=== PATIENT | male | born 1950 | race Caucasian/White ===

== ENCOUNTER 2016-10-27 02:00 | Observation (INO) | payer MEDICARE, OTHER ==
[2016-10-27] MEDS ORDERED: ASPIRIN 81 MG TABLET, CHEWABLE PO ONE (02:27)
[2016-10-27 02:45] LABS: ABSOLUTE EOSINOPHILS # (AUTO) 0.4 10^3/uL (0.0-0.6); ABSOLUTE LYMPHOCYTES (AUTO) 3.3 10^3/uL (0.5-4.7); ABSOLUTE MONOCYTES (AUTO) 0.6 10^3/uL (0.1-1.4); ABSOLUTE NEUT (AUTO) 3.1 10^3/uL (1.7-8.2); BASOPHILS % (AUTO) 0.6 % (0-2); EOSINOPHILS % (AUTO) 5.4 % (0-6); HEMATOCRIT 31.4 % (37.9-51.0); HEMOGLOBIN 9.8 g/dL (13.5-17.0); LYMPHOCYTES % (AUTO) 44.3 % (13-45); MEAN CORPUSCULAR HEMOGLOBIN 20.6 pg (27.0-33.4); MEAN CORPUSCULAR HGB CONC 31.1 g/dL (32.0-36.0); MEAN CORPUSCULAR VOLUME 66 fl (80-97); MONOCYTES % (AUTO) 8.5 % (3-13); RED BLOOD COUNT 4.74 10^6/uL (4.35-5.55); RED CELL DISTRIBUTION WIDTH 15.5 % (11.5-14.0); SEGMENTED NEUTROPHILS % (AUTO) 41.2 % (42-78); WHITE BLOOD COUNT 7.6 10^3/uL (4.0-10.5)
[2016-10-27 02:51] LABS: PROTHROMBIN TIME 12.1 SEC (11.4-15.4)
--- NOTE | 2016-10-27 02:56 | ER Document Report ---
ED General - General Time seen by provider: 02:40 Mode of Arrival: Ambulatory Information source: Patient TRAVEL OUTSIDE OF THE [place] IN LAST 30 DAYS: No - HPI Onset: This afternoon Onset/Duration: Gradual Associated symptoms: Chest pain, Headache <PHYLICIA CHAVIS - Last Filed: 10/27/16 03:42> <MICHELADHRUV ANN - Last Filed: 10/27/16 05:44> - General Chief Complaint: Chest Pain Stated Complaint: CHEST PAIN Notes: Patient is a 66-year-old male presents to the emergency department with complaints of chest pain and headache. Patient also complains that he is tired. Patient states that his pain was onset this afternoon at 15:00. Patient has taken 8-9 nitroglycerin, at least a baby aspirin, has to that in all patches on his chest; patient also took a Percocet which he is currently being prescribed and he also took some sleeping medications. Patient states that he woke up with some chest pain that felt different than previous episodes. Patient describes his pain as pressure and discomfort and states that his pain radiates down his left arm. Patient's emergency care attendant is Dr. Lopes at [facility]. Patient states that he currently is still having some chest discomfort that he is quite drowsy due to sleeping medications. Patient has a history of a previous heart attack x1, hypertension, and hypercholesterolemia. (PHYLICIA CHAVIS) - Related Data Allergies/Adverse Reactions: ciprofloxacin [From Cipro] Allergy (Verified 12/29/15 16:31) ciprofloxacin HCl [From Cipro] Allergy (Verified 12/29/15 16:31) isosorbide mononitrate [From Imdur] Allergy (Verified 12/29/15 16:31) lisinopril [From Zestril] Allergy (Verified 12/29/15 16:31) Past Medical History - General Information source: Patient - Social History Smoking Status: Current Every Day Smoker Frequency of alcohol use: Occasional Drug Abuse: None Family History: None - Past Medical History Cardiac Medical History: Reports: Hx Heart Attack - x1, Hx Hypercholesterolemia , Hx Hypertension GI Medical History: Reports: Hx Gastroesophageal Reflux Disease Psychiatric Medical History: Reports: Hx Anxiety, Hx Depression Past Surgical History: Reports: Hx Cardiac Surgery - double bypass, Hx Cholecystectomy, Hx Coronary Artery Bypass Graft, Hx Open Heart Surgery - Immunizations Hx Diphtheria, Pertussis, Tetanus Vaccination: Yes <PHYLICIA CHAVIS - Last Filed: 10/27/16 03:42> Review of Systems - Review of Systems Constitutional: No symptoms reported EENT: No symptoms reported Cardiovascular: See HPI, Chest pain Respiratory: No symptoms reported Gastrointestinal: No symptoms reported Genitourinary: No symptoms reported Male Genitourinary: No symptoms reported Musculoskeletal: No symptoms reported Skin: No symptoms reported Hematologic/Lymphatic: No symptoms reported Neurological/Psychological: See HPI, Headaches -: Yes All other systems reviewed and negative <PHYLICIA CHAVIS - Last Filed: 10/27/16 03:42> Physical Exam - Vital signs Interpretation: Normal - General General appearance: Appears well, Alert, Other - drowsy but arousable In distress: Mild - HEENT Head: Normocephalic, Atraumatic Eyes: Normal Pupils: PERRL Mucous membranes: Normal - Respiratory Respiratory status: No respiratory distress Chest status: Nontender - no reproducible chest pain with palpation Breath sounds: Normal Chest palpation: Normal - Cardiovascular Rhythm: Regular Heart sounds: Normal auscultation Murmur: No - Abdominal Inspection: Normal Distension: No distension Bowel sounds: Normal Tenderness: Nontender Organomegaly: No organomegaly - Back Back: Normal, Nontender - Extremities General upper extremity: Normal inspection, Normal ROM, Normal strength General lower extremity: Normal inspection, Normal ROM, Normal strength - Neurological Neuro grossly intact: Yes Cognition: Normal Orientation: AAOx4 Loren Coma Scale Eye Opening: Spontaneous Loren Coma Scale Verbal: Oriented Loren Coma Scale Motor: Obeys Commands [place] Coma Scale Total: 15 Speech: Normal - Psychological Associated symptoms: Normal affect, Normal mood - Skin Skin Temperature: Warm Skin Moisture: Dry <PHYLICIA CHAVIS - Last Filed: 10/27/16 03:42> Course - Laboratory Result Diagrams: 10/27/16 02:35 10/27/16 02:35 - Consults [facility] Time consulted: 03:27 Dr. Terrell Time consulted: 03:38 <KIRITINDIOPHYLICIA - Last Filed: 10/27/16 03:42> - Laboratory Result Diagrams: 10/27/16 02:35 10/27/16 02:35 - Diagnostic Test Radiology reviewed: Reports reviewed - EKG Interpretation by Mn EKG shows normal: Sinus rhythm Rate: Normal Rhythm: Other - Similar to old <DHRUV ABERNATHY - Last Filed: 10/27/16 05:44> - Re-evaluation Re-evalutation: 10/27/16 05:43 Patient with no chest pain at this time. Repeat troponin is equivocal. Patient with no changes on EKG. In the past, patient has had completely negative troponins. No recent stress test, and patient has a history of coronary artery disease. Patient has been discussed with the hospitalist service and will be kept for observation. Agrees with this plan. Stable at admission. (DHRUV ABERNATHY) - Vital Signs Vital signs: Temp Pulse Resp BP Pulse Ox 97.7 F 69 12 128/69 H 95 10/27/16 02:08 10/27/16 02:08 10/27/16 03:01 10/27/16 03:01 10/27/16 03:01 (PHYLICIA CHAVIS) (DHRUV ABERNATHY) - Laboratory Laboratory results interpreted by me: 10/27/16 10/27/16 02:35 02:35 Hgb 9.8 L Hct 31.4 L MCV 66 L MCH 20.6 L MCHC 31.1 L RDW 15.5 H Seg Neutrophils % 41.2 L Carbon Dioxide 32 H (PHYLICIA CHAVIS) (DHRUV ABERNATHY) - Consults [facility] Transfer [place] Reason for consultation: 10/27/16 03:27 Called [facility] to discuss patient with Dr. Lopes for possible recommendations/consult. Transfer center will not call the patient's emergency care attendant but will contact the hospitalist and will give a call back. (PHYLICIA CHAVIS) Dr. Terrell Reason for consultation: 10/27/16 03:[address] Terrell concerning patient, he recommends repeating the troponin at 04:30. (PHYLICIA CHAVIS) Discharge <PHYLICIA CHAVIS - Last Filed: 10/27/16 03:42> - Discharge Admitting Provider: [facility] [place] [facility] Admitted: Telemetry <DHRUV ABERNATHY - Last Filed: 10/27/16 05:44> - Discharge Clinical Impression: Chest pain Qualifiers: Chest pain type: unspecified Qualified Code(s): R07.9 - Chest pain, unspecified Condition: Stable Disposition: ADMITTED OBSERVATION Referrals: LORI BRIGHT MD [Primary Care Provider] - Follow up as needed Scribe Attestation: 10/27/16 05:44 I personally performed the services described in the documentation, reviewed and edited the documentation which was dictated to the scribe in my presence, and it accurately records my words and actions. (DHRUV ABERNATHY) Scribe Documentation - Scribe Written by Scribe:: Phylicia Chavis 03:29 10/27/16 acting as scribe for :: Michela <PHYLICIA CHAVIS - Last Filed: 10/27/16 03:42>
[2016-10-27 03:08] LABS: ALANINE AMINOTRANSFERASE 44 U/L (21-72); ALBUMIN 4.2 g/dL (3.5-5.0); ALKALINE PHOSPHATASE 83 U/L (38-126); ANION GAP 12 (5-19); ASPARTATE AMINO TRANSFERASE 34 U/L (17-59); BILIRUBIN,TOTAL 0.6 mg/dL (0.2-1.3); BLOOD UREA NITROGEN 12 mg/dL (7-20); CALCIUM 9.7 mg/dL (8.4-10.2); CARBON DIOXIDE 32 mmol/L (22-30); CHLORIDE 98 mmol/L (98-107); CREATINE KINASE 65 U/L (55-170); CREATININE RESULT 0.93 mg/dL (0.52-1.25); GLUCOSE 101 mg/dL (75-110); SODIUM 141.5 mmol/L (137-145); TOTAL PROTEIN 6.6 g/dL (6.3-8.2)
[2016-10-27 03:21] LABS: CREATINE KINASE MB 1.74 ng/mL (<4.55)
[2016-10-27 03:25] LABS: TROPONIN I 0.057 ng/mL
[2016-10-27] MEDS ORDERED: NITROGLYCERIN 0.4 MG/TAB 25 TAB/BOTTLE SL PRN (06:31)
--- NOTE | 2016-10-27 06:46 | PDOC H&P ---
History of Present Illness Admission Date/PCP: 10/27/16 05:46 LORI BRIGHT Patient complains of: Chest pain History of Present Illness: ENRIQUE HOLGUIN JR is a 66 year old male with a past medical history of coronary artery disease status post two-vessel bypass grafting approximately 10 years ago, chronic pain with benzodiazepine and opiate dependence, severe anxiety, and Depression. Who is an extraordinarily poor historian as he is clearly sedated and intoxicated rambling with word salad with angry outbursts and possible paranoia. He is either unwilling or unable to provide history of his chest pain. In the emergency room he has a unremarkable workup for mild microcytic anemia and referred to the hospitalist for evaluation. Past Medical History Cardiac Medical History: Reports: Myocardial Infarction - x1, Hyperlipidema, Hypertension Pulmonary Medical History: Reports: Chronic Obstructive Pulmonary Disease (COPD) GI Medical History: Reports: Gastroesophageal Reflux Disease Psychiatric Medical History: Reports: Bipolar Disorder, Depression, General Anxiety Disorder, Tobacco Dependency, Other - Opiate and benzodiazepine dependence Hematology: Denies: Anemia Past Surgical History Past Surgical History: Reports: Cholecystectomy, Coronary Artery Bypass Graft Social History Information Source: Patient Lives with: Family Smoking Status: Current Every Day Smoker Frequency of Alcohol Use: Occasional - Advance Directive Resuscitation Status: Full Code Family History Family History: CAD Parental Family History Reviewed: Yes Children Family History Reviewed: Yes Sibling(s) Family History Reviewed.: Yes Medication/Allergy Home Medications: Aripiprazole [Abilify 10 mg Tablet] 10 mg PO BID 01/26/14 Aspirin [Aspirin 81 mg Chewable Tablet] 81 mg PO DAILY 01/26/14 Bethanechol Chloride [Urecholine 25 Mg Tablet] 50 mg PO QID 01/26/14 Bupropion HCl [Wellbutrin Xl 150 mg 24hr Tablet] 1 tab PO DAILY 01/26/14 Ca Cmb No.1/Vit D3/B-6/FA/B12 [Vitamin D3 1,000 Unit Tablet] 1 tab PO Q2DAYS Clonazepam [Klonopin 1 mg Tablet] 1 mg PO BID 01/26/14 Dextroamphetamine/Amphetamine [Adderall 10 mg Tablet] 10 mg PO BID 01/26/14 Fenofibrate Nanocrystallized [Tricor 145 mg Tablet] 145 mg PO DAILY 01/26/14 Fentanyl 1 each TD Q48HP PRN 01/26/14 Finasteride [Proscar 5 mg Tablet] 5 mg PO DAILY 01/26/14 Fluoxetine HCl [Prozac] 40 mg PO BID 01/26/14 Gabapentin [Neurontin 300 mg Capsule] 300 mg PO QID 01/26/14 Lansoprazole [Prevacid 30 mg Odt Tablet] 30 mg PO BID 01/26/14 Metoprolol Succinate [Toprol Xl] 50 mg PO DAILY 01/26/14 Oxycodone HCl/Acetaminophen [Percocet 7.5-325 Mg Tablet] 1 each PO Q8 PRN Quetiapine Fumarate [Seroquel] 150 mg PO DAILY 01/26/14 Ropinirole HCl [Requip] 0.5 mg PO DAILY 01/26/14 Clonazepam [Klonopin 1 mg Tablet] 1 mg PO TID #14 tablet 10/14/14 Dicyclomine HCl [Bentyl 20 mg Tablet] 20 mg PO QID #120 tablet 10/14/14 Amox Tr/Potassium Clavulanate [Augmentin 875-125 Tablet] 1 tab PO BID 10 Days Hydrocodone/Acetaminophen [Balmorhea 5-325 mg Tablet] 1 - 2 tab PO ASDIR #15 tablet 11/22/15 Promethazine HCl [Phenergan 25 mg Tablet] 1 - 2 tab PO Q6H PRN #15 tablet Allergies/Adverse Reactions: ciprofloxacin [From Cipro] Allergy (Verified 12/29/15 16:31) ciprofloxacin HCl [From Cipro] Allergy (Verified 12/29/15 16:31) isosorbide mononitrate [From Imdur] Allergy (Verified 12/29/15 16:31) lisinopril [From Zestril] Allergy (Verified 12/29/15 16:31) Review of Systems ROS unobtainable: Due to mental status Physical Exam Vital Signs: Temp Pulse Resp BP Pulse Ox 97.7 F 69 12 128/69 H 95 10/27/16 02:08 10/27/16 02:08 10/27/16 03:01 10/27/16 03:01 10/27/16 03:01 General appearance: PRESENT: disheveled, mild distress Head exam: PRESENT: atraumatic, normocephalic Eye exam: PRESENT: conjunctiva pink, EOMI, PERRLA, other - Pinpoint pupils. ABSENT: scleral icterus Ear exam: PRESENT: normal external ear exam Mouth exam: PRESENT: dry mucosa Neck exam: ABSENT: carotid bruit, JVD, lymphadenopathy, thyromegaly Respiratory exam: PRESENT: clear to auscultation raj. ABSENT: rales, rhonchi, wheezes Cardiovascular exam: PRESENT: RRR. ABSENT: diastolic murmur, rubs, systolic murmur Pulses: PRESENT: normal dorsalis pedis pul Vascular exam: PRESENT: normal capillary refill GI/Abdominal exam: PRESENT: normal bowel sounds, soft. ABSENT: distended, guarding, mass, organolmegaly, rebound, tenderness Rectal exam: PRESENT: deferred Extremities exam: PRESENT: full ROM. ABSENT: calf tenderness, clubbing, pedal edema Neurological exam: PRESENT: altered, oriented to person, CN II-XII grossly intact Psychiatric exam: PRESENT: agitated, anxious, unusual affect Focused psych exam: PRESENT: delusional, flight of ideas, paranoid, restlessness Skin exam: PRESENT: dry, intact, warm. ABSENT: cyanosis, rash Results Impressions: Chest X-Ray 10/27/16 02:28 IMPRESSION: No acute radiographic finding in the chest. Assessment & Plan - Diagnosis (1) Chest pain Qualifiers: Chest pain type: unspecified Qualified Code(s): R07.9 - Chest pain, unspecified Is this a current diagnosis for this admission?: YesPlan: Patient is extraordinarily poor historian unable to elaborate initial workup is unremarkable however given his history of coronary disease I'll evaluate for acute coronary syndrome and risk factors for coronary artery disease with consideration of stress test (2) Chronic pain Is this a current diagnosis for this admission?: YesPlan: Patient is clearly intoxicated concern for excessive opiate use, will continue fentanyl and otherwise wean (3) Anxiety Is this a current diagnosis for this admission?: YesPlan: Clearly intoxicated and sedated will limit benzodiazepine and wean and consider mental health consultation (4) Depression Is this a current diagnosis for this admission?: YesPlan: Depression with psychotic features given pressured speech, paranoia and angry outbursts continue outpatient regiment and consider mental health consultation (5) Anemia Is this a current diagnosis for this admission?: YesPlan: Microcytic and likely iron deficient will evaluate ferritin iron level consider outpatient colonoscopy if positive and placed on iron with bowel regiment - Time Time Spent: 50 to 70 Minutes
[2016-10-27] MEDS ORDERED: LACTULOSE SYRUP 20 GM/30 ML UDCUP PO ONE (08:00)
--- NOTE | 2016-10-27 08:10 | EKG REPORT ---
SEVERITY:- ABNORMAL ECG - SINUS RHYTHM NONSPECIFIC ANTEROLATERAL ST CHANGES : Confirmed by: Koko Valdez MD 27-Oct-2016 08:09:25
[2016-10-27 08:33] LABS: CREATINE KINASE MB 1.45 ng/mL (<4.55); TROPONIN I 0.08 ng/mL
[2016-10-27 09:30] LABS: FOLATE > 20.00 ng/mL (>2.76)
[2016-10-27] MEDS ORDERED: DOCUSATE SODIUM 100 MG CAPSULE PO SCH (10:00)
[2016-10-27] MEDS ORDERED: FAMOTIDINE 20 MG TABLET PO SCH (10:00)
--- NOTE | 2016-10-27 12:00 | PSYCHOLOGICAL NOTE ---
Psych Note - Psych Note Psych Note: Patient presented to the [facility] ED with complaints of chest pain and headache. Patient states that he had a double bypass and since then he sometimes gets pains in his chest. He continued to disclose that this morning he had a chest pain and after taking medication it went away however then came back. He stated the last time this occurred they had to fly him in a helicopter to a different hospital. He continued to disclose that they concluded that he was not having heart problems they were actually possibly strong inside the attacks. He continued to disclose that a normal day after having 4 cups of coffee he reads. When he gets up to do something sometimes he has to turn right back around and go back to bed. This morning he did not do that. Patient has established mental health provider with [facility] with a diagnosis of bipolar. Patient states that he has had 1 inpatient mental health hospitalization that was approximate 4-5 days however he was unable to remember when this occurred because it was so long ago. Patient was alert and orientated to person place time and circumstance. Mood was expansive with labile affect; this was seen with patient's vocalization of his discomfort and pain. Patient denies suicidal /homicidal ideation. Patient denies auditory visual hallucinations; no delusions are noted. Thought process is logical organized and linear. Conversational speech was within normal rate tone and prosody. Eye contact was not made. Intellectual abilities appear to be within normal range. Attention and concentration were fair. Insight, judgment, impulse control appear to be good. 296.80 (F 31.9) Unspecified Bipolar and Related Disorder per history provided by patient Impression\plan: Patient is psychiatrically cleared for discharge. Patient denies suicidal homicidal ideation. Patient has a home provider for mental health at [facility]. Patient does not meet IVC criteria. Patient is psychiatrically cleared for discharge; attending physician is in agreement with recommendations and disposition.
[2016-10-27] MEDS ORDERED: MAG HYDROX/AL HYDROX/SIMETH SUSP 30 ML UDCUP PO PRN (12:28)
[2016-10-27] MEDS ORDERED: MAG HYDROX/AL HYDROX/SIMETH SUSP 30 ML UDCUP PO ONE (13:00)
[2016-10-27] MEDS ORDERED: LIDOCAINE 2% VISCOUS SOLN 20 ML UDCUP PO ONE (13:00)
[2016-10-27] MEDS ORDERED: METOCLOPRAMIDE HCL ORAL SOLN 10 MG/10 ML UDCUP PO ONE (13:00)
[2016-10-27 13:25] VITALS: BP 164/97
--- NOTE | 2016-10-27 16:15 | PDOC DISCHARGE SUMMARY ---
General - Admit/Disc Date/PCP Admission Date/Primary Care Provider: 10/27/16 06:31 LORI EUGENEDarío Discharge Date: 10/27/16 - Discharge Diagnosis (1) Chest pain Is this a current diagnosis for this admission?: YesSummary: The patient had chest pain with negative cardiac enzymes. He does have history of acid reflux is most likely is the cause for his chest pain. (2) Depression Is this a current diagnosis for this admission?: Yes (3) Anemia Is this a current diagnosis for this admission?: Yes (4) Anxiety Is this a current diagnosis for this admission?: Yes (5) Chronic pain Is this a current diagnosis for this admission?: YesSummary: The patient was wearing to fentanyl patches when he presented and was slightly impaired initially. Eventually became alert and oriented 3 with no sedation. - Additional Information Resuscitation Status: Full Code Discharge Diet: Cardiac Discharge Activity: Activity As Tolerated Home Medications: Aspirin [Aspirin 81 mg Chewable Tablet] 162 mg PO QHS 10/27/16 Bethanechol Chloride [Urecholine 50 mg Tablet] 50 mg PO TID 10/27/16 Bupropion HCl [Wellbutrin Xl 150 mg 24hr Tablet] 150 mg PO DAILY 10/27/16 Clonazepam [Klonopin 1 mg Tablet] 1 mg PO TIDP PRN 10/27/16 Dextroamphetamine/Amphetamine [Adderall 10 mg Tablet] 10 mg PO BID 10/27/16 Famotidine [Pepcid 20 mg Tablet] 20 mg PO Q12 tablet 10/27/16 Fentanyl [Duragesic 75 Mcg/Hr Transdermal Patch] 1 each TD Q48H 10/27/16 Fluoxetine HCl [Prozac] 80 mg PO DAILY 10/27/16 Gabapentin [Neurontin 300 mg Capsule] 300 mg PO Q6 10/27/16 Melatonin 20 mg PO QHS 10/27/16 Nitroglycerin [Nitrostat 0.4 mg (1/150 Gr) Tabs 25/Bottle] 1 tab SL Q5MP PRN bottle 10/27/16 Oxycodone HCl/Acetaminophen [Percocet 7.5-325 mg Tablet] 1 each PO Q6HP PRN Quetiapine Fumarate [Seroquel] 150 mg PO QHS 10/27/16 Ropinirole HCl [Requip] 0.5 mg PO DAILY 10/27/16 History of Present Illness History of Present Illness: ENRIQUE HOLGUIN JR is a 66 year old male with a history of coronary artery disease who presented with some atypical chest pain. He had pain in his epigastric area. When he presented he was somewhat impaired and was noted have 2 Duragesic patches on one of which was removed. The patient was very animated and does have a history of bipolar disorder. He did not have any discharge surgeon and the pain was not made worse with exertion. It was made worse with palpation of his epigastric area Hospital Course Hospital Course: 66 year old gentleman who presented with atypical chest pain. He does have a history of coronary artery disease but he reported this pain was different than his usual cardiac pain. He had negative cardiac enzymes and he initially was somewhat impaired when he presented but he then became alert and oriented and had no further episodes chest pain. I suggested that he follow-up with his primary care doctor for consideration for GI workup or if his pain continue to consider going back to see his aircraft engine technician Dr. Star Lopes of [facility] cardiology. Physical Exam Vital Signs: Temp Pulse Resp BP Pulse Ox 98.0 F 64 18 164/97 H 100 10/27/16 13:25 10/27/16 13:25 10/27/16 13:25 10/27/16 13:25 10/27/16 13:25 Intake & Output 10/26/16 10/27/16 10/28/16 06:59 06:59 06:59 Output Total 1500 Balance -1500 General appearance: PRESENT: no acute distress Eye exam: PRESENT: conjunctiva pink. ABSENT: scleral icterus Mouth exam: PRESENT: moist, tongue midline Neck exam: ABSENT: carotid bruit, JVD, lymphadenopathy, thyromegaly Respiratory exam: PRESENT: clear to auscultation raj. ABSENT: rales, rhonchi, wheezes Cardiovascular exam: PRESENT: RRR. ABSENT: diastolic murmur, rubs, systolic murmur GI/Abdominal exam: PRESENT: normal bowel sounds, soft. ABSENT: distended, guarding, mass, organolmegaly, rebound, tenderness Extremities exam: ABSENT: calf tenderness, clubbing, pedal edema Neurological exam: PRESENT: alert, awake, oriented to person, oriented to place , oriented to time, oriented to situation Psychiatric exam: PRESENT: appropriate affect Skin exam: PRESENT: dry, intact, warm. ABSENT: cyanosis, rash Results Laboratory Results: 10/27/16 10/27/16 07:51 07:51 Retic Count (auto) 2.67 Absolute Retic 0.128 H Iron 119 TIBC 264 % Saturation 45 Ferritin 104.00 Vitamin B12 573.0 Folate > 20.00 10/27/16 07:51 CK-MB (CK-2) 1.45 Troponin I 0.080 Impressions: Chest X-Ray 10/27/16 02:28 IMPRESSION: No acute radiographic finding in the chest. Qualifiers PATEINT BEING DISCHARGED WITH ANY OF THE FOLLOWING DIAGNOSIS?: No Plan Discharge Plan: Patient is discharged home in stable condition. He will follow-up with his primary care doctor Trista Carl in the next week. Patient is instructed to notify his aircraft engine technician Dr. Star Lopes that he was in the emergency room today. Time Spent: Less than 30 Minutes
== END 2016-10-27 13:31 | disposition home or self-care (01) ==
LOC: ER 02:00 → EH 05:46 → UNDOADMOB 05:46 → EH 06:31
PROVIDERS: ADMIT Internal Medicine; ATTEND Internal Medicine
DX: R07.9 Chest pain, unspecified (principal); I25.810 Atherosclerosis of coronary artery bypass graft(s) without angina pectoris; F41.8 Other specified anxiety disorders; D64.9 Anemia, unspecified; G89.29 Other chronic pain; F31.9 Bipolar disorder, unspecified; I25.2 Old myocardial infarction; E78.5 Hyperlipidemia, unspecified; I10 Essential (primary) hypertension; J44.9 Chronic obstructive pulmonary disease, unspecified; K21.9 Gastro-esophageal reflux disease without esophagitis; F17.200 Nicotine dependence, unspecified, uncomplicated; F11.20 Opioid dependence, uncomplicated; Z82.49 Family history of ischemic heart disease and other diseases of the circulatory system
CPT/HCPCS: 93005; 99285; 36415; 82553; 82607; 82550; 82728; 82746; 83540; 83550; 84443; 85025; 85610; 85045; 80053; 84484; 71020; 93010; G0378; A9270 ×4; J3490

== ENCOUNTER 2017-02-18 11:41 | Emergency (ER) | payer MEDICARE, OTHER ==
[2017-02-18 11:56] VITALS: BP 155/86
[2017-02-18] MEDS ORDERED: LIDOCAINE 1% INJ-PF (10 MG/ML) 30 ML SDV INJ ONE (12:45)
--- NOTE | 2017-02-18 12:47 | ER Document Report ---
ED Hand/Wrist Injury - General Chief Complaint: Laceration Stated Complaint: INJURY/FINGER PAIN Time Seen by Provider: 02/18/17 12:29 Mode of Arrival: Ambulatory Information source: Patient Notes: 66-year-old male presents to ED for laceration to the right pinky finger this a.m. He states he cut it on a piece of glass. He is on lead thinners and the finger continued to bleed. When first examined patient please bleeding was pretty significant. Was able to slow down with a blood pressure cuff and direct pressure. TRAVEL OUTSIDE OF THE [place] IN LAST 30 DAYS: No - HPI Injury to: Small finger Onset: This morning Where: Home Timing: Still present Quality of pain: Sharp Severity: Moderate Pain Level: 3 Context: Laceration - Related Data Allergies/Adverse Reactions: ciprofloxacin [From Cipro] Allergy (Verified 12/29/15 16:31) ciprofloxacin HCl [From Cipro] Allergy (Verified 12/29/15 16:31) isosorbide mononitrate [From Imdur] Allergy (Verified 12/29/15 16:31) lisinopril [From Zestril] Allergy (Verified 12/29/15 16:31) Past Medical History - General Information source: Patient - Social History Smoking Status: Current Every Day Smoker Cigarette use (# per day): Yes - 8-10 cigarettes and 1 cigar a day Chew tobacco use (# tins/day): No Smoking Education Provided: Yes - less than 2 minutes Frequency of alcohol use: Occasional Drug Abuse: None Occupation: [employer] [facility] Lives with: Family Family History: Arthritis, CAD, Hyperlipidemia, Hypertension - Past Medical History Cardiac Medical History: Reports: Hx Heart Attack - x1, Hx Hypercholesterolemia , Hx Hypertension Pulmonary Medical History: Reports: Hx COPD EENT Medical History: Reports: None Neurological Medical History: Reports: None Endocrine Medical History: Reports: None Renal/ Medical History: Reports: None Malignancy Medical History: Reports None GI Medical History: Reports: Hx Gastroesophageal Reflux Disease Musculoskeltal Medical History: Reports Hx Arthritis Skin Medical History: Reports None Psychiatric Medical History: Reports: Hx Anxiety, Hx Bipolar Disorder, Hx Depression Past Surgical History: Reports: Hx Cholecystectomy, Hx Coronary Artery Bypass Graft - Double - Immunizations Hx Diphtheria, Pertussis, Tetanus Vaccination: Yes Review of Systems - Review of Systems Constitutional: No symptoms reported EENT: No symptoms reported Cardiovascular: No symptoms reported Respiratory: No symptoms reported Gastrointestinal: No symptoms reported Genitourinary: No symptoms reported Male Genitourinary: No symptoms reported Musculoskeletal: No symptoms reported Skin: Other - Skin flap to right fifth finger Hematologic/Lymphatic: No symptoms reported Neurological/Psychological: No symptoms reported -: Yes All other systems reviewed and negative Physical Exam - Vital signs Vitals: Temp Pulse Resp BP Pulse Ox 75 F L 75 19 155/86 H 97 02/18/17 11:49 02/18/17 11:49 02/18/17 11:49 02/18/17 11:49 02/18/17 11:49 Interpretation: Normal - General General appearance: Appears well, Alert - HEENT Head: Normocephalic, Atraumatic Eyes: Normal Pupils: PERRL - Respiratory Respiratory status: No respiratory distress Chest status: Nontender Breath sounds: Normal Chest palpation: Normal - Cardiovascular Rhythm: Regular Heart sounds: Normal auscultation Murmur: No - Abdominal Inspection: Normal Distension: No distension Bowel sounds: Normal Tenderness: Nontender Organomegaly: No organomegaly - Back Back: Normal, Nontender - Extremities General upper extremity: Normal inspection, Nontender, Normal color, Normal ROM , Normal temperature General lower extremity: Normal inspection, Nontender, Normal color, Normal ROM , Normal temperature, Normal weight bearing. No: Angelique's sign - Neurological Neuro grossly intact: Yes Cognition: Normal Orientation: AAOx4 Loren Coma Scale Eye Opening: Spontaneous [place] Coma Scale Verbal: Oriented Loren Coma Scale Motor: Obeys Commands Loren Coma Scale Total: 15 Speech: Normal Motor strength normal: LUE, RUE, LLE, RLE Sensory: Normal - Psychological Associated symptoms: Normal affect, Normal mood - Skin Skin Temperature: Warm Skin Moisture: Dry Skin Color: Normal Skin irregularity: Laceration - Skin flap right fifth finger approximately 1 cm wide by 2 cm long Course - Re-evaluation Re-evalutation: 02/18/17 14:46 Is cussed x-ray with patient. No glass noted in the wound. Wound was cleaned well and then irrigated well with saline before closing with Dermabond and Steri -Strips - Vital Signs Vital signs: Temp Pulse Resp BP Pulse Ox 75 F L 75 19 155/86 H 97 02/18/17 11:49 02/18/17 11:49 02/18/17 11:49 02/18/17 11:49 02/18/17 11:49 - Diagnostic Test Radiology reviewed: Image reviewed, Reports reviewed Procedures - Immobilization Right Finger 5th digit Immobilizer type: Finger protection Performed by: PCT Post-Proc Neuro Vasc Exam: Normal Alignment checked and good: Yes - Laceration/Wound Repair Right Lateral Finger 5th digit Time completed: 14:40 Wound length (cm): 2.5 Wound's Depth, Shape: Flap Laceration pre-procedure: Sterile PPE donned, Sterile drapes applied, Other - surgical scrub Volume Anesthetic (mLs): 5 Wound explored: Clean Irrigated w/ Saline (mLs): 300 Wound Repaired With: Steri-strips, Dermabond Post-procedure wound care: Sterile dressing applied, Splint applied Post-procedure NV exam normal: Yes Complications: No Discharge - Discharge Clinical Impression: right 5th finger skin flap Condition: Stable Disposition: HOME, SELF-CARE Instructions: Care of Steri-Strip Closure ([facility]) Additional Instructions: Hand Laceration A laceration on the hand can present special problems. It may be difficult to keep the wound dry. Motion of the fingers can disturb the healing edges. Your work may involve exposure to damaging chemicals or water. Keep the wound clean and dry. If you can't keep the cut dry, undisturbed, and free of chemical exposure, please discuss this with the doctor. If any water or chemical gets onto the dressing, remove it, blot the wound dry, then apply a fresh bandage. Dressings should be changed every day. If you feel the stitches pulling as you move the hand, a splint or other form of protection is needed. If any signs of infection occur (swelling, redness, increasing tenderness, red streaks, tender lumps in the armpit, or fever), see the doctor immediately. SOAP CLEANSING: Gently wash the wound daily using a mild soap (like Ivory, Phisoderm, Neutrogena). Use warm water, rubbing gently until all debris, ooze, and crusting have been washed from the wound. Allow to dry briefly (about 10 minutes) after cleaning. Repeat this cleansing at least three times a day for the first two days and then once or twice a day. TETANUS IMMUNIZATION GIVEN: You have been given an immunization against tetanus. Please record this in your records. In general, a booster is needed only once every 10 years. The tetanus shot protects against tetanus or "lockjaw," which is a complication of certain wound infections (the tetanus shot cannot protect against the actual infection). The immunization site may become warm and red due to local reaction. If this occurs, apply warm compresses and take aspirin or ibuprofen to reduce inflammation and discomfort. Return for evaluation if the reaction becomes severe. FOLLOW-UP CARE: Please follow-up with your primary doctor on Sunday via telephone and have an appointment scheduled either Sunday or Sunday to reassess this injury. If you have been referred to a physician for follow-up care, call the physician s office for an appointment as you were instructed or within the next two days. If you experience worsening or a significant change in your symptoms, notify the physician immediately or return to the Emergency Department at any time for re-evaluation. Forms: Elevated Blood Pressure Referrals: LORI BRIGHT MD [Primary Care Provider] - Follow up as needed
[2017-02-18] MEDS ORDERED: DIPH/PERTUSS(ACELL)/TETANUS VAC/PF 0.5 ML SYR (>=10YO) IM ONE (14:45)
== END 2017-02-18 15:00 | disposition home or self-care (01) ==
LOC: ER 11:41
DX: S61.216A Laceration without foreign body of right little finger without damage to nail, initial encounter (principal); W25.XXXA Contact with sharp glass, initial encounter; Y92.009 Unspecified place in unspecified non-institutional (private) residence as the place of occurrence of the external cause; I10 Essential (primary) hypertension; I25.2 Old myocardial infarction; J44.9 Chronic obstructive pulmonary disease, unspecified; F17.210 Nicotine dependence, cigarettes, uncomplicated; F17.290 Nicotine dependence, other tobacco product, uncomplicated; Z71.6 Tobacco abuse counseling; Z88.1 Allergy status to other antibiotic agents; Z88.8 Allergy status to other drugs, medicaments and biological substances; Z95.1 Presence of aortocoronary bypass graft
CPT/HCPCS: 99283; 90471; 73130; 90715; J3490

== ENCOUNTER → 2018-02-12 | Outpatient (CLI) | payer MEDICARE, OTHER ==
--- NOTE | 2018-02-12 15:17 | RADIOLOGY REPORT (SQ) ---
EXAM DESCRIPTION: CT CHEST WITHOUT COMPLETED DATE/TIME: 02/12/2018 2:41 pm REASON FOR STUDY: COUGH (R05) R10.2 PELVIC AND PERINEAL PAIN R63.4 ABNORMAL WEIGHT LOSS R05 COUGH COMPARISON: None. TECHNIQUE: CT scan performed of the chest without intravenous contrast. Images reviewed with lung, soft tissue and bone windows. Reconstructed coronal and sagittal MPR images reviewed. All images st ored on PACS. All CT scanners at this facility use dose modulation, iterative reconstruction, and/or weight based d osing when appropriate to reduce radiation dose to as low as reasonably achievable (ALARA). [facility]: Dose Right [facility]: CareDose [facility]: Dose Right [facility]: Teradose 4D [facility]: [employer] RADIATION DOSE: mGy. LIMITATIONS: No technical limitations. FINDINGS: LUNGS AND PLEURA: No masses, infiltrates, pneumothorax. No pleural effusions, calcificati ons. HILAR AND MEDIASTINAL STRUCTURES: No identified masses or abnormal nodes. No obvious aneurysm. HEART AND VASCULAR STRUCTURES: No aneurysm. No pericardial effusion. UPPER ABDOMEN: See separate report of the CT of the abdomen. THYROID AND OTHER SOFT TISSUES: No masses. No adenopathy. BONES: No significant finding. HARDWARE: CABG. OTHER: No other significant findings. IMPRESSION: No acute findings in the chest. TECHNICAL DOCUMENTATION: JOB ID: [id number] Quality ID # [id number]: Final reports with documentation of one or more dose reduction techniques (e.g., Au tomated exposure control, adjustment of the mA and/or kV according to patient size, use of iterative reconstruction technique) 2010 [employer]- All Rights Reserved Reading location - IP/workstation name: [facility]
--- NOTE | 2018-02-12 15:22 | RADIOLOGY REPORT (SQ) ---
EXAM DESCRIPTION: CT ABD/PELVIS NO ORAL OR IV COMPLETED DATE/TIME: 02/12/2018 2:41 pm REASON FOR STUDY: PELVIC AND PERINEAL PAIN (R10.2), ABN WEIGHT LOSS (R63.4), CHRONIC FATIGUE R10.2 PELVIC AND PERINEAL PAIN R63.4 ABNORMAL WEIGHT LOSS R05 COUGH COMPARISON: 12/17/2013 TECHNIQUE: CT scan of the abdomen and pelvis performed without intravenous or oral contrast. Images reviewed with lung, soft tissue, and bone windows. Reconstructed coronal and sagittal MPR images revi ewed. All images stored on PACS. All CT scanners at this facility use dose modulation, iterative reconstruction, and/or weight based d osing when appropriate to reduce radiation dose to as low as reasonably achievable (ALARA). [facility]: Dose Right [facility]: CareDose [facility]: Dose Right [facility]: Teradose 4D [facility]: [employer] RADIATION DOSE: CT Rad equipment meets quality standard of care and radiation dose reduction techniq ues were employed. CTDIvol: 9.1 - 12.8 mGy. DLP: 1086 mGy-cm.mGy. LIMITATIONS: None. FINDINGS: LOWER CHEST: See separate report of the CT of the chest. NON-CONTRASTED LIVER, SPLEEN, ADRENALS: Evaluation limited by lack of IV contrast. No identified sign ificant masses. PANCREAS: No masses. No peripancreatic inflammatory changes. GALLBLADDER: Surgically absent. RIGHT KIDNEY AND URETER: No suspicious masses. Assessment limited by lack of IV contrast. 1 mm ston e lower pole. No hydronephrosis or hydroureter. LEFT KIDNEY AND URETER: No suspicious masses. Assessment limited by lack of IV contrast. No signifi cant calcifications. No hydronephrosis or hydroureter. AORTA AND RETROPERITONEUM: No aneurysm. No retroperitoneal masses or adenopathy. BOWEL AND PERITONEAL CAVITY: Scattered diverticulosis. No obvious masses or inflammatory changes. No free fluid. APPENDIX: Not visualized. PELVIS, BLADDER, AND ABDOMINAL WALL:Distended urinary bladder. BONES: No significant findings. OTHER: No other significant finding. IMPRESSION: 1. Small nonobstructing stone right kidney. 2. Diverticulosis. 3. Distended urinary bladder. This could be physiologic or due to bladder outlet obstruction. COMMENT: Quality ID # [id number]: Final reports with documentation of one or more dose reduction techniques (e.g., Automated exposure control, adjustment of the mA and/or kV according to patient size, use of iterative reconstruction technique) TECHNICAL DOCUMENTATION: JOB ID: [id number] [employer]- All Rights Reserved Reading location - IP/workstation name: [facility]
== END ==
LOC: RAD 14:09
PROVIDERS: ATTEND Physician Assistant
DX: N20.0 Calculus of kidney (principal); K57.90 Diverticulosis of intestine, part unspecified, without perforation or abscess without bleeding; N32.89 Other specified disorders of bladder; R10.2 Pelvic and perineal pain; R63.4 Abnormal weight loss; R05 Cough; R53.82 Chronic fatigue, unspecified; D56.1 Beta thalassemia
CPT/HCPCS: 71250; 74176

== ENCOUNTER 2018-07-12 17:56 | Emergency (ER) | payer MEDICARE, OTHER ==
[2018-07-12 18:17] VITALS: BP 144/88
== END 2018-07-12 18:30 | disposition left against medical advice (07) ==
LOC: ER 17:56
DX: Z53.21 Procedure and treatment not carried out due to patient leaving prior to being seen by health care provider (principal)

== ENCOUNTER 2020-02-20 09:01 | Emergency (ER) | payer MEDICARE, OTHER ==
[2020-02-20 09:06] VITALS: BP 150/83
[2020-02-20 10:07] LABS: APPEARANCE,URINE CLEAR; BILIRUBIN,URINE NEGATIVE (NEGATIVE); COLOR,URINE YELLOW; GLUCOSE, URINE NEGATIVE (NEGATIVE); KETONES,URINE NEGATIVE (NEGATIVE); LEUKOCYTE ESTERASE,URINE NEGATIVE (NEGATIVE); NITRITE,URINE NEGATIVE (NEGATIVE); PROTEIN,URINE NEGATIVE (NEGATIVE); URINE SPECIFIC GRAVITY 1.009; UROBILINOGEN,URINE NEGATIVE mg/dL (<2.0)
[2020-02-20 10:10] LABS: ABSOLUTE BASOPHILS # (AUTO) 0.1 10^3/uL (0.0-0.2); ABSOLUTE EOSINOPHILS # (AUTO) 0.4 10^3/uL (0.0-0.6); ABSOLUTE LYMPHOCYTES (AUTO) 1.5 10^3/uL (0.5-4.7); ABSOLUTE MONOCYTES (AUTO) 0.5 10^3/uL (0.1-1.4); BASOPHILS % (AUTO) 0.9 % (0-2); EOSINOPHILS % (AUTO) 5.7 % (0-6); HEMATOCRIT 31.9 % (37.9-51.0); HEMOGLOBIN 10.4 g/dL (13.5-17.0); LYMPHOCYTES % (AUTO) 23.1 % (13-45); MEAN CORPUSCULAR HEMOGLOBIN 21.4 pg (27.0-33.4); MEAN CORPUSCULAR HGB CONC 32.6 g/dL (32.0-36.0); MEAN CORPUSCULAR VOLUME 66 fl (80-97); MONOCYTES % (AUTO) 7.5 % (3-13); PLATELET COUNT 311 10^3/uL (150-450); RED BLOOD COUNT 4.87 10^6/uL (4.35-5.55); RED CELL DISTRIBUTION WIDTH 16.7 % (11.5-14.0); SEGMENTED NEUTROPHILS % (AUTO) 62.8 % (42-78); TOTAL CELLS COUNTED % (AUTO) 100 %; WHITE BLOOD COUNT 6.3 10^3/uL (4.0-10.5)
--- NOTE | 2020-02-20 10:22 | ER Document Report ---
Entered by MINISTERIO CRAFT SCRIBE 02/20/20 1010 Acting as scribe for:SHERYL HDEZ MD ED General - General Chief Complaint: Flank Pain Stated Complaint: FLANK PAIN Time Seen by Provider: 02/20/20 09:44 Mode of Arrival: Ambulatory Information source: Patient Notes: This 69 year old male patient presents to the emergency department today with complaints of subjective fevers x35 days, diffuse mild abdominal pain for x20 days, and bilateral flank pain which began yesterday morning. Patient reports that Sunday (02/16) he did colon prep and Sunday(02/18) he had a colonoscopy and he is unsure if this is related. The patient is on chronic pain management wearing 50ugm/hr fentanyl patch and taking Percocet 5 mg 4 times daily on a chronic basis. Patient mentions that he no longer has a PCP as he was discharged from Dr. Sarwat Rai' practice after mentioning to his nurse that "30% of his patients reported that he misdiagnosed them and had poor bedside manner". He was upset with Dr. Rai because he gave him a follow-up appointment in 4 months and the patient thought he should be seen much sooner. He comes in here today with a list of requests which include having his CD4 and CD8 T-cell counts done along with other esoteric lab tests. He does not really know what any of this means and was just searching the Internet. TRAVEL OUTSIDE OF THE [place] IN LAST 30 DAYS: No - Related Data Allergies/Adverse Reactions: ciprofloxacin [From Cipro] Allergy (Verified 02/20/20 09:46) ciprofloxacin HCl [From Cipro] Allergy (Verified 02/20/20 09:46) isosorbide mononitrate [From Imdur] Allergy (Verified 02/20/20 09:46) lisinopril [From Zestril] Allergy (Verified 02/20/20 09:46) Past Medical History - General Information source: Patient - Social History Smoking Status: Current Every Day Smoker Cigarette use (# per day): Yes - 3/4 ppd Frequency of alcohol use: None Drug Abuse: None Lives with: Family Family History: Reviewed & Not Pertinent, Arthritis, CAD, Hyperlipidemia, Hypertension Patient has homicidal ideation: No - Past Medical History Cardiac Medical History: Reports: Hx Coronary Artery Disease, Hx Heart Attack - x1, Hx Hypercholesterolemia, Hx Hypertension Pulmonary Medical History: Reports: Hx COPD GI Medical History: Reports: Hx Gastroesophageal Reflux Disease Musculoskeletal Medical History: Reports Hx Arthritis Psychiatric Medical History: Reports: Hx Anxiety, Hx Bipolar Disorder, Hx Depression Past Surgical History: Reports: Hx Cholecystectomy, Hx Coronary Artery Bypass Graft - Double - Immunizations Hx Diphtheria, Pertussis, Tetanus Vaccination: Yes Review of Systems - Review of Systems Constitutional: See HPI, Fever - subjective EENT: No symptoms reported Cardiovascular: No symptoms reported Respiratory: No symptoms reported Gastrointestinal: See HPI, Abdominal pain Genitourinary: See HPI, Flank pain Male Genitourinary: No symptoms reported Musculoskeletal: No symptoms reported Skin: No symptoms reported Hematologic/Lymphatic: No symptoms reported Neurological/Psychological: No symptoms reported -: Yes All other systems reviewed and negative Physical Exam - Vital signs Vitals: Temp Pulse Resp BP Pulse Ox 98.3 F 64 18 150/83 H 96 02/20/20 09:05 02/20/20 09:05 02/20/20 09:05 02/20/20 09:05 02/20/20 09:05 - Notes Notes: Physical Exam: General: Alert, appears well. HEENT: Normocephalic. Atraumatic. PERRL. Extraocular movements intact. Oropharynx clear. Neck: Supple. Non-tender. Respiratory: No respiratory distress. Clear and equal breath sounds bilaterally. Cardiovascular: Regular rate and rhythm. Abdominal: Normal Inspection. Non-tender. No distension. Normal Bowel Sounds. Back: Tenderness with palpation underneath inferior rib margins bilaterally. Extremities: Moves all four extremities. Upper extremities: Normal inspection. Normal ROM. Lower extremities: Normal inspection. No edema. Normal ROM. Neurological: Normal cognition. AAOx4. Normal speech. Psychological: Normal affect. Normal Mood. Skin: Warm. Dry. Normal color. Course - Vital Signs Vital signs: Temp Pulse Resp BP Pulse Ox 98.3 F 64 18 150/83 H 96 02/20/20 09:30 02/20/20 09:05 02/20/20 09:05 02/20/20 09:05 02/20/20 09:05 - Laboratory Result Diagrams: 02/20/20 09:45 02/20/20 09:45 Laboratory results interpreted by me: 02/20/20 09:45 Hgb 10.4 L Hct 31.9 L MCV 66 L MCH 21.4 L RDW 16.7 H Discharge - Discharge Clinical Impression: Rib pain, Muscle strain Condition: Stable Disposition: HOME, SELF-CARE Additional Instructions: I suspect the pain you noticed this morning under the ribs on both sides is due to muscle strains that would occur from positioning you for your colonoscopy yesterday. Your lab work was unremarkable and there was no suggestion of infection, or kidney stones. This type of pain is usually made worse with movement, turning twisting, sit ups , or deep breath. It will probably take a few days to slowly go away. Follow-up with your primary care provider if not improving over the next few days. RETURN TO THE EMERGENCY ROOM IF ANY NEW OR WORSENING SYMPTOMS. I personally performed the services described in the documentation, reviewed and edited the documentation which was dictated to the scribe in my presence, and it accurately records my words and actions.
[2020-02-20 10:23] LABS: ALBUMIN 4.1 g/dL (3.5-5.0); ALKALINE PHOSPHATASE 66 U/L (38-126); ASPARTATE AMINO TRANSFERASE 18 U/L (17-59); BILIRUBIN,TOTAL 0.6 mg/dL (0.2-1.3); BLOOD UREA NITROGEN 16 mg/dL (7-20); CALCIUM 9.4 mg/dL (8.4-10.2); GLUCOSE 99 mg/dL (75-110); POTASSIUM 4.6 mmol/L (3.6-5.0); TOTAL PROTEIN 6.8 g/dL (6.3-8.2)
[2020-02-20 10:28] LABS: ANION GAP 6 (5-19); CARBON DIOXIDE 28 mmol/L (22-30); CHLORIDE 105 mmol/L (98-107)
== END 2020-02-20 11:35 | disposition home or self-care (01) ==
LOC: ER 09:01
DX: R07.81 Pleurodynia (principal); R10.9 Unspecified abdominal pain; R50.9 Fever, unspecified; F17.210 Nicotine dependence, cigarettes, uncomplicated; I25.10 Atherosclerotic heart disease of native coronary artery without angina pectoris; E78.00 Pure hypercholesterolemia, unspecified; I10 Essential (primary) hypertension; J44.9 Chronic obstructive pulmonary disease, unspecified; Z90.49 Acquired absence of other specified parts of digestive tract; Z95.1 Presence of aortocoronary bypass graft; I25.2 Old myocardial infarction
CPT/HCPCS: 36415; 80053; 81001; 83690; 85025; 99284

== ENCOUNTER → 2020-06-21 | Outpatient (CLI) | payer MEDICARE, OTHER ==
[~2020-06-21] MED LIST: REGADENOSON INJ 0.4 MG/5 ML DISP.SYRIN IV ONE
--- NOTE | 2020-06-21 13:27 | DRAGON STRESS TEST REPORT ---
Pharmacological nuclear stress test Date: 06/21/2020 Referring physician: Dr. Dhiraj Hartley Performing physician: Jhon Solorio MD Indication: Chest pain Clinical history 69-year-old male with medical history significant for coronary artery disease status post CABG, systemic hypertension and dyslipidemia who continues to smoke cigarettes who presented with chest pain. We decided to proceed with pharmacological nuclear stress test to evaluate for myocardial ischemia as cause of symptoms. Procedure The patient presented to the stress lab. Initially rest images were obtained according to standard protocol after the injection of 12.8 millicurie technetium 99m sestamibi. Subsequently the patient underwent pharmacological stress utilizing 0.4 mg of regadenoson intravenously. The patient's EKG and vital signs were monitored throughout the procedure. Subsequently patient was injected with 36.7 millicuries of technetium 99m sestamibi. After a period of rest, stress images were obtained according to standard protocol. EKG showed sinus rhythm at 66 beats per minute. The patient's stress EKG did not show any evidence for myocardial ischemia. There were no arrhythmias observed. Raw as well as processed rest and stress images were reviewed. There was mild to moderate gut uptake which did not interfere significantly with the study. There is a medium sized partially reversible, moderate intensity perfusion defect in the inferior wall which could be consistent with myocardial ischemia in the RCA/left circumflex distribution. There is evidence of diaphragmatic attenuation on the study. There is mild to moderate hypokinesis of the inferior wall. The calculated ejection fraction is 50%The TID ratio is 1.09. Conclusion The stress EKG is negative for myocardial ischemia There is a medium sized, partially reversible, moderately intense perfusion defect in the inferior wall which could be consistent with myocardial ischemia in the RCA/left circumflex distribution. There is mild to moderate hypokinesis of the inferior wall The gated left ventricular ejection fraction is 50 %. The patient will be given an appointment to discuss these results. CC: Dr. Dhiraj Hartley GARNET HEALTHEdgardo
== END ==
LOC: RAD 07:49
PROVIDERS: ATTEND Internal Medicine
DX: I25.119 Atherosclerotic heart disease of native coronary artery with unspecified angina pectoris (principal); I10 Essential (primary) hypertension; R00.1 Bradycardia, unspecified; Z95.1 Presence of aortocoronary bypass graft; E78.5 Hyperlipidemia, unspecified; F17.210 Nicotine dependence, cigarettes, uncomplicated
CPT/HCPCS: 93017; 78452; A9500; J2785; Q9969

== ENCOUNTER → 2020-06-24 | Outpatient (CLI) | payer MEDICARE, OTHER ==
--- NOTE | 2020-06-24 18:09 | XCELERA REPORT ---
[address] [address] Transthoracic Echocardiogram Report Name: CHESLIE VAUGHANENRIQUE JR Age: 69 yrs Gender: Male : 1950 Patient Status: Outpatient Patient Location: Study Date: 06/24/2020 03:05 PM History: Chest pain Height: 70 in Weight: 175 lb BSA: 2.0 m2 Procedure: A complete two-dimensional transthoracic echocardiogram was performed (2D, M-mode, spectral and color flow Doppler). The study was technically adequate with some images being suboptimal in quality. Reason For Study: CP Previous Evaluation: No previous studies were available. History: Chest pain. Ordering Physician: ARMAND MORRISSEY Performed By: Elijah Gruber Interpretation Summary The study was technically adequate with some images being suboptimal in quality. Left ventricular systolic function is normal. The Ejection Fraction estimate is 55-60% The right ventricle is normal in size and function. There is a trace amount of mitral regurgitation There is no aortic valve stenosis There is a mild amount of aortic regurgitation There is a trace amount of tricuspid regurgitation There is mild pulmonary hypertension by echo There is no pericardial effusion. MMode/2D Measurements & Calculations RVDd: 3.4 cm LVIDd: 5.9 cm FS: 32.3 % Ao root diam: 3.3 cm IVSd: 1.00 cm LVIDs: 4.0 cm EDV(Teich): 173.9 ml Ao root area: 8.5 cm2 LVPWd: 0.97 cm ESV(Teich): 70.1 ml LA dimension: 5.1 cm EF(Teich): 59.7 % Doppler Measurements & Calculations MV E max sunday: MV P1/2t max sunday: Ao V2 max: LV V1 max P.8 cm/sec 54.3 cm/sec 103.2 cm/sec 2.7 mmHg MV A max sunday: MV P1/2t: 81.8 msec Ao max PG: LV V1 max: 78.8 cm/sec MVA(P1/2t): 2.7 cm2 4.3 mmHg 82.1 cm/sec MV E/A: 0.84 MV dec slope: 194.4 cm/sec2 MV dec time: 0.18 sec PA V2 max: PI end-d sunday: TR max sunday: MV P1/2t-pr_phl: 104.6 cm/sec 109.7 cm/sec 295.4 cm/sec 81.8 msec PA max PG: TR max P.4 mmHg 34.9 mmHg Left Ventricle The left ventricle is mildly dilated. There is mild concentric left ventricular hypertrophy. Left ventricular systolic function is normal. The Ejection Fraction estimate is 55-60%. Doppler measurements suggest impaired left ventricular relaxation, which is associated with grade I/IV or mild diastolic dysfunction. No regional wall motion abnormalities noted. Right Ventricle The right ventricle is normal in size and function. Atria The right atrium is normal. The left atrium is mildly dilated. The interatrial septum is intact with no evidence for an atrial septal defect. There is no Doppler evidence for an interatrial shunt. Mitral Valve Calcified mitral apparatus. There is no mitral valve stenosis. There is a trace amount of mitral regurgitation. Aortic Valve The aortic valve is sclerotic, but shows no functional abnormality. The aortic valve is trileaflet. The aortic valve opens well. There is no aortic valve stenosis. There is a mild amount of aortic regurgitation. Tricuspid Valve The tricuspid valve is normal in structure and function. There is a trace amount of tricuspid regurgitation. Best estimated right ventricular systolic pressure is elevated at 30-40mmHg. There is mild pulmonary hypertension by echo. Pulmonic Valve The pulmonic valve is normal in structure and function. There is no pulmonic valvular stenosis. There is a trace amount of pulmonic regurgitation. Great Vessels The aortic root is normal size. The inferior vena cava appeared normal and decreased > 50% with respiration (RAP 5-10 mmHg). Effusions There is no pericardial effusion. : ARMAND MORRISSEY Anil
== END ==
LOC: SP 14:41
PROVIDERS: ATTEND Internal Medicine
DX: I25.119 Atherosclerotic heart disease of native coronary artery with unspecified angina pectoris (principal); I10 Essential (primary) hypertension; R00.1 Bradycardia, unspecified
CPT/HCPCS: 93306